=== PATIENT | male | born 1965 | race African-American/Black ===

== ENCOUNTER 2019-02-15 19:31 | Inpatient (IN) | payer MEDICAID ==
[~2019-02-15] VITALS: Ht 188 cm; Wt 127.0 kg
[2019-02-15] MEDS ORDERED: ONDANSETRON HCL 4MG/2ML INJ IV STA (19:54)
[2019-02-15] MEDS ORDERED: SODIUM CHLORIDE 0.9% 1,000 ML IV ONE (19:54)
[2019-02-15] MEDS ORDERED: FAMOTIDINE 20MG/2ML VIAL IV ONE (21:00)
[2019-02-15 21:20] LABS: BASOPHILS % 0.1 % (0.0-2.0); EOSINOPHILS % 0.2 % (0.0-5.0); HEMATOCRIT. 26.2 % (42.0-52.0); HEMOGLOBIN. 8.5 g/dL (14.0-18.0); LYMPHOCYTES % 14.3 % (20.0-50.0); MEAN CORPUSCULAR HEMOGLOBIN 26.1 pg (28.0-32.0); MEAN CORPUSCULAR VOLUME 80.8 fL (80.0-94.0); MEAN PLATELET VOLUME 8.5 fl (7.4-10.4); MONOCYTES % 5.3 % (2.0-8.0); NEUTROPHILS % 80.1 % (40.0-76.0); PLATELET 250 x1000/uL (130-400); RED BLOOD CELL COUNT 3.25 mill/uL (4.7-6.1); RED CELL DISTRIBUTION WIDTH 15.6 % (11.6-14.6)
[2019-02-15 21:26] LABS: CHLORIDE 106 mEq/L (98-107)
[2019-02-15 21:27] LABS: PROTHROMBIN TIME 10.6 sec (9.6-11.0)
[2019-02-15 21:29] LABS: ETHANOL BLOOD < 10 mg/dL
[2019-02-15 22:43] LABS: HEMATOCRIT 26.6 % (42.0-52.0); HEMOGLOBIN 8.6 g/dL (14.0-18.0)
[2019-02-15] MEDS ORDERED: LORAZEPAM 2MG/ML CPJ IV PRN (23:30)
[2019-02-15] MEDS ORDERED: MAGNESIUM/ALUMINUM HYDROXIDE/SIMETHICONE 30ML UDC PO PRN (23:30)
[2019-02-15] MEDS ORDERED: CLONIDINE 0.1MG TABLET PO PRN (23:30)
[2019-02-15] MEDS ORDERED: HYDRALAZINE 20MG/ML VIAL IV PRN (23:30)
[2019-02-15] MEDS ORDERED: IPRATROPIUM/ALBUTEROL 0.5-3(2.5)MG/3ML NEB INH PRN (23:30)
[2019-02-15] MEDS ORDERED: GUAIFENESIN 200MG/10ML SUGAR FREE UDC PO PRN (23:30)
[2019-02-15] MEDS ORDERED: ONDANSETRON HCL 4MG/2ML INJ IV PRN (23:30)
[2019-02-15] MEDS ORDERED: DOCUSATE SODIUM 100MG CAPSULE PO PRN (23:30)
[2019-02-15] MEDS ORDERED: DIPHENHYDRAMINE 50MG/ML VIAL IV PRN (23:30)
[2019-02-15] MEDS ORDERED: HYDROMORPHONE HCL/PF 2MG/ML CPJ IV PRN (23:30)
[2019-02-16] MEDS: ACETAMINOPHEN 325MG TABLET PO PRN ×2 (00:40→06:09)
[2019-02-16 01:18] LABS: CLARITY URINE CLEAR (CLEAR); COLOR URINE YELLOW (YELLOW); KETONES URINE NEGATIVE (NEGATIVE); LEUKOCYTE ESTERASE URINE NEGATIVE (NEGATIVE); NITRITE URINE NEGATIVE (NEGATIVE); OCCULT BLOOD URINE NEGATIVE (NEGATIVE); PH URINE 6.5 (4.5-8.0); PROTEIN URINE NEGATIVE (NEGATIVE); SPECIFIC GRAVITY URINE 1.022 (1.005-1.030); UROBILINOGEN URINE 0.2 E.U./dL (0.2-1.0)
[2019-02-16 01:20] VITALS: BP 110/66
[2019-02-16 01:47] LABS: *AMPHETAMINES SCREEN URINE NEGATIVE (NEGATIVE); *BARBITURATES SCREEN URINE NEGATIVE (NEGATIVE); *BENZODIAZEPINES SCREEN URINE NEGATIVE (NEGATIVE); *COCAINE SCREEN URINE NEGATIVE (NEGATIVE); METHADONE URINE SCREEN NEGATIVE (NEGATIVE); OPIATES URINE SCREEN NEGATIVE (NEGATIVE)
[2019-02-16 01:48] LABS: CANNABINOID URINE SCREEN NEGATIVE (NEGATIVE); PHENCYCLIDINE URINE SCREEN NEGATIVE (NEGATIVE)
[2019-02-16] MEDS ORDERED: BUSP15TA3 PO (02:28)
[2019-02-16] MEDS ORDERED: OLAN5TAB26 PO (02:28)
[2019-02-16] MEDS ORDERED: FLUO60TA PO (02:28)
[2019-02-16] MEDS ORDERED: DIPH25CA83 PO (02:28)
[2019-02-16] MEDS ORDERED: AMLO5TAB88 PO (02:29)
[2019-02-16] MEDS ORDERED: METO-539 PO (02:29)
[2019-02-16] MEDS ORDERED: PIPERACILLIN/TAZ 3.375G PREMIX 50 ML IV SCH (03:00)
[2019-02-16 03:26] LABS: CHLORIDE 105 mEq/L (98-107)
[2019-02-16 03:34] LABS: CREATINE KINASE 211 IU/L (39-308)
[2019-02-16 03:36] LABS: BASOPHILS % 0.2 % (0.0-2.0); HEMATOCRIT. 24.7 % (42.0-52.0); LYMPHOCYTES % 10.1 % (20.0-50.0); MEAN CORPUSCULAR HEMOGLOBIN 26.1 pg (28.0-32.0); MEAN CORPUSCULAR VOLUME 80.8 fL (80.0-94.0); MEAN PLATELET VOLUME 8.6 fl (7.4-10.4); MONOCYTES % 7.6 % (2.0-8.0); NEUTROPHILS % 82.1 % (40.0-76.0); PLATELET 237 x1000/uL (130-400); RED BLOOD CELL COUNT 3.06 mill/uL (4.7-6.1); RED CELL DISTRIBUTION WIDTH 15.8 % (11.6-14.6)
[2019-02-16 03:37] LABS: CREATINE KINASE MB FRACTION 2.6 ng/mL (0.5-3.6)
[2019-02-16 04:00] VITALS: BP 160/94
[2019-02-16] MEDS: SODIUM CHLORIDE 0.9% INJ 3ML FLUSH IVF SCH ×3 (05:29→21:43)
[2019-02-16] MEDS: PIPERACILLIN/TAZ 3.375G PREMIX 50 ML IV SCH ×3 (05:29→22:22)
[2019-02-16 08:00] VITALS: BP 105/55
[2019-02-16] MEDS ORDERED: PANTOPRAZOLE SODIUM 40 MG/VIAL IV SCH (09:00)
[2019-02-16] MEDS ORDERED: BACTERIOSTATIC SODIUM CHLORIDE 0.9% 30ML VIAL IJ ONE (13:45)
[2019-02-16] MEDS ORDERED: SIMETHICONE 40 MG/0.6 ML 30ML ONE (13:45)
[2019-02-16 15:59] LABS: CREATINE KINASE 170 IU/L (39-308)
[2019-02-16 16:01] LABS: CREATINE KINASE MB FRACTION 1.9 ng/mL (0.5-3.6)
[2019-02-16 16:07] LABS: TOTAL IRON BINDING CAPACITY 243 ug/dL (250-450)
[2019-02-16 16:09] LABS: FERRITIN 31 ng/mL (22-322)
[2019-02-16 16:21] LABS: VITAMIN B12 SERUM 318 pg/mL (211-911)
[2019-02-16 16:39] LABS: FOLIC ACID (FOLATE) SERUM > 20.00 ng/mL (>5.38)
[2019-02-16] MEDS: PANTOPRAZOLE SODIUM 40 MG/VIAL IV SCH (16:52)
[2019-02-16] MEDS ORDERED: MIDAZOLAM HCL 5 MG/5 ML VIAL ONE (16:52)
[2019-02-16] MEDS ORDERED: DIPHENHYDRAMINE 50MG/ML VIAL ONE ×2 (16:52→17:10)
[2019-02-16] MEDS ORDERED: FENTANYL CITRATE/PF 50MCG/ML 2ML VIAL ONE (16:52)
[2019-02-16] MEDS ORDERED: FENTANYL CITRATE/PF 50MCG/ML 2ML VIAL IV PRN (17:00)
[2019-02-16] MEDS ORDERED: DIPHENHYDRAMINE 50MG/ML VIAL IV PRN (17:03)
[2019-02-16] MEDS ORDERED: MIDAZOLAM HCL 5 MG/5 ML VIAL IV PRN (17:18)
[2019-02-16 20:00] VITALS: BP 121/74
[2019-02-16] MEDS: SUCRALFATE 1 G/10 ML UDC PO SCH (21:43)
[2019-02-17] VITALS: BP 114/74
[2019-02-17] MEDS: HYDROCODONE/ACETAMINOPHEN 5/325MG TABLET PO PRN ×2 (00:16→09:33)
[2019-02-17 04:00] VITALS: BP 122/75
[2019-02-17] MEDS: PIPERACILLIN/TAZ 3.375G PREMIX 50 ML IV SCH ×3 (05:34→21:19)
[2019-02-17] MEDS: SODIUM CHLORIDE 0.9% INJ 3ML FLUSH IVF SCH ×3 (05:35→21:20)
[2019-02-17 08:00] VITALS: BP 115/76
[2019-02-17] MEDS: SUCRALFATE 1 G/10 ML UDC PO SCH ×4 (09:23→21:19)
[2019-02-17] MEDS: PANTOPRAZOLE SODIUM 40 MG/VIAL IV SCH ×2 (09:24→17:24)
[2019-02-17 12:00] VITALS: BP 122/67
[2019-02-17 16:00] VITALS: BP 113/55
[2019-02-17 20:00] VITALS: BP 117/66
[2019-02-18] VITALS: BP 110/62
[2019-02-18 04:00] VITALS: BP 119/68
[2019-02-18] MEDS: PIPERACILLIN/TAZ 3.375G PREMIX 50 ML IV SCH ×3 (05:55→21:12)
[2019-02-18] MEDS: ACETAMINOPHEN 325MG TABLET PO PRN ×2 (05:55→20:25)
[2019-02-18] MEDS: SODIUM CHLORIDE 0.9% INJ 3ML FLUSH IVF SCH ×3 (05:55→21:13)
[2019-02-18 08:00] VITALS: BP 112/69
[2019-02-18] MEDS: SUCRALFATE 1 G/10 ML UDC PO SCH ×4 (08:34→20:24)
[2019-02-18] MEDS: PANTOPRAZOLE SODIUM 40 MG/VIAL IV SCH ×2 (08:34→16:34)
[2019-02-18 12:00] VITALS: BP 124/80
[2019-02-18] MEDS: BUSPIRONE HCL 10MG TABLET PO SCH ×2 (12:31→20:25)
[2019-02-18 16:00] VITALS: BP 120/78
[2019-02-18] MEDS: IRON SUCROSE COMPLEX 100 MG/5 ML ML IV SCH (16:35)
[2019-02-18 20:00] VITALS: BP 106/76
[2019-02-18] MEDS: OLANZAPINE 5MG TABLET PO SCH (20:26)
[2019-02-19 00:05] VITALS: BP 129/85
[2019-02-19 04:00] VITALS: BP 108/71
[2019-02-19] MEDS: PIPERACILLIN/TAZ 3.375G PREMIX 50 ML IV SCH ×3 (05:35→21:43)
[2019-02-19] MEDS: SODIUM CHLORIDE 0.9% INJ 3ML FLUSH IVF SCH ×3 (05:35→21:44)
[2019-02-19 08:00] VITALS: BP 130/83
[2019-02-19] MEDS: BUSPIRONE HCL 10MG TABLET PO SCH ×2 (10:10→21:43)
[2019-02-19] MEDS: PANTOPRAZOLE SODIUM 40 MG/VIAL IV SCH ×2 (10:11→17:49)
[2019-02-19] MEDS: FLUOXETINE HCL 20MG CAPSULE PO SCH (10:11)
[2019-02-19] MEDS: SUCRALFATE 1 G/10 ML UDC PO SCH ×4 (10:11→21:43)
[2019-02-19 12:00] VITALS: BP 107/76
[2019-02-19] MEDS: ACETAMINOPHEN 325MG TABLET PO PRN ×2 (13:38→21:44)
[2019-02-19 16:00] VITALS: BP 116/73
[2019-02-19] MEDS: IRON SUCROSE COMPLEX 100 MG/5 ML ML IV SCH (17:49)
[2019-02-19 20:00] VITALS: BP 139/73
[2019-02-19] MEDS: OLANZAPINE 5MG TABLET PO SCH (21:44)
[2019-02-20] VITALS: BP 153/84
[2019-02-20 04:00] VITALS: BP 110/71
[2019-02-20] MEDS: SODIUM CHLORIDE 0.9% INJ 3ML FLUSH IVF SCH (05:14)
[2019-02-20] MEDS: PIPERACILLIN/TAZ 3.375G PREMIX 50 ML IV SCH (05:14)
[2019-02-20 08:00] VITALS: BP 108/65
[2019-02-20] MEDS: PANTOPRAZOLE SODIUM 40 MG/VIAL IV SCH (08:46)
[2019-02-20] MEDS: SUCRALFATE 1 G/10 ML UDC PO SCH (08:46)
[2019-02-20] MEDS: FLUOXETINE HCL 20MG CAPSULE PO SCH (08:47)
[2019-02-20] MEDS: BUSPIRONE HCL 10MG TABLET PO SCH (08:47)
[2019-02-20] MEDS ORDERED: IRON SUCROSE COMPLEX 100 MG/5 ML ML IV SCH (09:00)
[2019-02-20 09:37] VITALS: BP 108/65
[2019-02-21] MEDS ORDERED: OLAN5TAB3 MT (03:02)
[2019-02-25] MEDS ORDERED: BUSP30TA2 MT (08:48)
== END 2019-02-20 10:30 | disposition home or self-care (01) | DRG 241 ==
LOC: ER 20:07 → 7WST 22:07 → EDBEDREQ 22:10 → EDBEDREQTM 22:10 → ENRESERV 02-16 00:28 → 7WST 02-16 03:18
PROVIDERS: ADMIT Internal Medicine; ATTEND Internal Medicine
PROC: 0D778ZZ Dilation of Stomach, Pylorus, Via Natural or Artificial Opening Endoscopic (ICD-10-PCS; principal; 2019-02-16)
PROC: 0DB68ZX Excision of Stomach, Via Natural or Artificial Opening Endoscopic, Diagnostic (ICD-10-PCS; 2019-02-16)
DX: K29.01 Acute gastritis with bleeding (principal); K22.11 Ulcer of esophagus with bleeding; E46 Unspecified protein-calorie malnutrition; M35.2 Behcet's disease; K31.1 Adult hypertrophic pyloric stenosis; D50.9 Iron deficiency anemia, unspecified; I10 Essential (primary) hypertension; K12.1 Other forms of stomatitis; K21.0 Gastro-esophageal reflux disease with esophagitis; T14.91XA Suicide attempt, initial encounter; Z79.899 Other long term (current) drug therapy; Z68.35 Body mass index [BMI] 35.0-35.9, adult; X83.8XXA Intentional self-harm by other specified means, initial encounter; Y93.89 Activity, other specified; Y92.89 Other specified places as the place of occurrence of the external cause; Y99.8 Other external cause status
CPT/HCPCS: 36415; 71045; 80305; 80307; 80320; 80329; 82270; 82550; 82553; 82607; 82728; 82746; 82962; 83540; 83550; 84484; 85014; 85018; 86850; 86900; 88305; 88313; 93005; 99285; C9113; J1200; J2250; J2405; J2543; J3010; J3490; J7030; J7050; G0480